=== PATIENT | female | born 1975 | race Caucasian/White ===

== ENCOUNTER 2023-06-28 04:28 | Emergency (ER) | payer SELFPAY ==
[2023-06-28 05:14] VITALS: RESP 20; BMI 31.3
[2023-06-28 05:53] LABS: PH,URINE 5.5 (5.0-8.0); URINE APPEARANCE CLEAR; URINE BILIRUBIN NEGATIVE (NEGATIVE); URINE COLOR YELLOW; URINE GLUCOSE (UA) NEGATIVE (NEGATIVE); URINE KETONE NEGATIVE (NEGATIVE); URINE LEUK ESTERASE NEGATIVE (NEGATIVE); URINE NITRITE NEGATIVE (NEGATIVE); URINE PROTEIN NEGATIVE (NEGATIVE); URINE UROBILINOGEN 0.2 mg/dL (0.2-1.0)
[2023-06-28 06:34] LABS: HCG,QUALITATIVE URINE Negative
[2023-06-28 06:34] LABS: BASO % 0.5 % (0-2.0); EOS % 0.3 % (0-4.5); HEMATOCRIT 27.2 % (32.4-45.2); HEMOGLOBIN 8.2 GM/dL (10.7-15.3); LYMPH % 11.4 % (8-40); MCH 21.5 pg (25.7-33.7); MCHC 30.1 g/dl (32.0-36.0); MEAN CELL VOLUME 71.7 fl (80-96); MEAN PLT VOLUME 8.4 fl (7.5-11.1); MONO % 4.2 % (3.8-10.2); NEUT % 83.6 % (42.8-82.8); PLATELET COUNT 456 10^3/uL (134-434); RBC 3.79 M/mm3 (3.60-5.2); RDW 18.4 % (11.6-15.6); WHITE BLOOD COUNT 13.5 K/mm3 (4.0-10.0)
[2023-06-28 06:53] LABS: INR 1.13 (0.83-1.09); PROTHROMBIN TIME (PATIENT) 13.1 SEC (9.7-13.0)
[2023-06-28 06:55] LABS: ACTIVATED PTT 30.6 SECONDS (25.2-36.5)
[2023-06-28 06:57] LABS: POTASSIUM 3.8 mmol/L (3.5-5.1)
[2023-06-28 07:00] LABS: BLOOD UREA NITROGEN 13.2 mg/dL (7-18); CALCIUM 9.4 mg/dL (8.5-10.1); MAGNESIUM 2.1 mg/dL (1.8-2.4)
[2023-06-28 07:03] LABS: CREATININE 0.7 mg/dL (0.55-1.3); PHOSPHOROUS 3.1 mg/dL (2.5-4.9)
[2023-06-28 07:04] LABS: BILIRUBIN,TOTAL 0.2 mg/dL (0.2-1); TOT PROT 7.9 g/dl (6.4-8.2)
[2023-06-28] MEDS ORDERED: IBUPROFEN 600 MG TABLET (FP) PO ONE (10:03)
[2023-06-28 10:39] LABS: ANISOCYTOSIS 1+; MACROCYTOSIS 0; OVALOCYTE 1+
[2023-06-28 12:48] LABS: OPIATES, URI NEGATIVE (NEGATIVE); URINE AMPHETAMINES NEGATIVE (NEGATIVE)
[2023-06-28 12:49] LABS: METHADONE, UR NEGATIVE (NEGATIVE); PHENCYCLIDINE,URINE NEGATIVE (NEGATIVE); URINE BARBITURATES NEGATIVE (NEGATIVE); URINE BENZODIAZEPINES NEGATIVE (NEGATIVE)
[2023-06-28 12:55] LABS: COCAINE, UR POSITIVE (NEGATIVE)
[2023-06-28 16:26] VITALS: BP 98/65; PULSE 77; TEMP 98.5
== END 2023-06-28 16:49 | disposition home or self-care (01) ==
LOC: JER 04:28
DX: S60.512A Abrasion of left hand, initial encounter (principal); S60.511A Abrasion of right hand, initial encounter; M25.562 Pain in left knee; R22.0 Localized swelling, mass and lump, head; Y04.8XXA Assault by other bodily force, initial encounter
CPT/HCPCS: 36415; 70450-TC; 70486-TC; 72125-TC; 72170-TC-FY; 73521-TC-FY; 73560-TC-LT-FY; 73706-TC-RT; 80053; 80307; 81003; 83735; 84100; 84443; 84703; 85025; 85610; 85730; 87086; 99285-25; Q9967